=== PATIENT | female | born 1960 | race Caucasian/White ===

== ENCOUNTER 2021-07-13 17:23 | Emergency (ER) | payer OTHER ==
[~2021-07-13 17:23] MED LIST: CYCLOBENZAPRINE10 MG PO
[2021-07-13 17:57] LABS: HEMOGLOBIN 15.5 gm/dl (12.3-15.3); RED BLOOD COUNT 4.98 M/UL (4.00-5.10); WHITE BLOOD COUNT 9.4 K/UL (4.5-11.0)
[2021-07-13] MEDS ORDERED: NAPROSYN500 MG PO (21:00)
[2021-07-13] MEDS ORDERED: CEPHALEXIN500 M1 PO (21:00)
[2021-07-13] MEDS ORDERED: ZANAFLEX6 MG PO (21:00)
== END 2021-07-13 21:20 | disposition home or self-care (01) ==
LOC: ER1 17:23
PROVIDERS: Physician Assistant
DX: N39.0 Urinary tract infection, site not specified (principal); M51.37 Other intervertebral disc degeneration, lumbosacral region
CPT/HCPCS: 72131; 80053; 81001; 83690; 85025; 87077; 87086; 87186; 96374; 96375; 99285; J2270; J2405; Q9967